=== PATIENT | female | born 2005 | race Caucasian/White ===

== ENCOUNTER 2025-01-15 17:48 | Emergency (ER) | payer BC, OTHER ==
[2025-01-15] MEDS ORDERED: NA CHLORIDE 0.9% 2,000 ML ONE (18:26)
[2025-01-15 18:34] LABS: Absolute Lymphocytes (CBC) 1.9 K/uL (0.7-4.9); Hematocrit 36.6 % (36.0-45.0); Hemoglobin 12.7 g/dL (12.0-15.0); MCH 28.5 pg (27.0-35.0); MCHC 34.7 g/dL (32.0-36.0); MCV 82.2 fL (80-100); MPV 7.4 fL (7.6-11.3); Nucleated RBC Absolute Count 0.0 (0-0); Nucleated Red Blood Cells % 0.0 % (0-0); RBC Red Blood Cell Count 4.45 M/uL (3.86-4.86); White Blood Count 10.10 thou/uL (4.3-10.9)
--- NOTE | 2025-01-15 18:43 | RAD REPORT ---
EXAMINATION: ONE VIEW CHEST XR CLINICAL INDICATION: COUGH TECHNIQUE: Frontal chest projection is submitted. Examination is limited by patient positioning and t echnique. COMPARISON: No prior exam. FINDINGS: The lungs are well inflated and clear. The heart is normal in size. No displaced fractures identified . IMPRESSION: No acute intrathoracic abnormalities.
[2025-01-15 18:54] LABS: ALT/SGPT 19.0 U/L (13-56); AST/SGOT 15.0 U/L (15-37); Albumin 3.6 g/dL (3.4-5.0); Albumin/Globulin Ratio 0.9 (1.1-1.8); Alkaline Phosphatase 103.0 U/L (45-117); Anion Gap 9.5 mEq/L (5.0-15.0); BUN Blood Urea Nitrogen 12.0 mg/dL (7-18); Globulin 4.2 g/dL (2.3-3.5); Glucose Level 109.0 mg/dL (74-106); Potassium 3.5 mEq/L (3.5-5.1)
[2025-01-15 18:57] LABS: Influenza A Ag Negative; Influenza B Ag Negative; SARS-CoV-2 Antigen Rapid Res Negative (Negative)
[2025-01-15 19:02] LABS: Thyroid Stimulating Hormone 1.480 uIU/mL (0.358-3.740); Troponin High Sensitivity < 3.0 pg/mL (<58.9)
[2025-01-15 19:17] LABS: Sqamous Epithelial <5 /HPF (None Seen); Urine Crystals Unidentified Few /HPF (None Seen); Urine Culture Reflex Order NOT NEEDED; Urine Microscopic Reflex YN ORDER UMIC; Urine Yeast (Budding) Trace /HPF (None Seen)
--- NOTE | 2025-01-15 20:05 | EDPHYS ---
Physician Documentation [facility] Name: Miguelina Velez Age: 19 yrs Sex: Female : 2005 Arrival Date: 01/15/2025 Time: 17:48 Bed 8 Private MD: ED Physician Isiah Paniagua HPI: 01/15 21:04 This 19 yrs old Female presents to ER via Ambulatory with complaints of Flu dr5 Symptoms, high heart rate. 21:04 Onset: The symptoms/episode began/occurred 4 day(s) ago. Patient is a 19-year-old dr5 female with history of myasthenia gravis coming in with flulike symptoms, left eye pain, and elevated heart rate. Patient reports that she went to urgent care and was referred here due to elevated heart rate. Patient denies chest pain, shortness of breath, abdominal pain, nausea, vomiting, dysuria. Patient does report intermittent diarrhea.. 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 - Infectious Disease History:: Denies. - Social history:: Smoking status: Patient denies any tobacco usage or history of. ROS: 21:04 Constitutional: as per hpi dr5 Exam: 21:04 Constitutional: This is a well developed, well nourished patient who is awake, alert, dr5 and in no acute distress. Head/Face: Normocephalic, atraumatic. Eyes: Pupils equal round and reactive to light, extra-ocular motions intact. Lids and lashes normal. Conjunctiva and sclera are non-icteric and not injected. Cornea within normal limits. Periorbital areas with no swelling, redness, or edema. Neck: Trachea midline, no thyromegaly or masses palpated, and no cervical lymphadenopathy. Supple, full range of motion without nuchal rigidity, or vertebral point tenderness. No Meningismus. Chest/axilla: Normal chest wall appearance and motion. Nontender with no deformity. No lesions are appreciated. Cardiovascular: Tachycardic rate and rhythm with a normal S1 and S2. Normal PMI, no JVD. No pulse deficits. Respiratory: Lungs have equal breath sounds bilaterally, clear to auscultation. No rales, rhonchi or wheezes noted. No increased work of breathing, no retractions or nasal flaring. Abdomen/GI: Soft, non-tender, non-distended Back: No spinal tenderness. No costovertebral tenderness. Full range of motion. Skin: Warm, dry with normal turgor. Normal color with no rashes, no lesions, and no evidence of cellulitis. MS/ Extremity: Pulses equal, no cyanosis. Neurovascular intact. Full, normal range of motion. Neuro: Awake and alert, GCS 15, oriented to person, place, time, and situation. Cranial nerves II-XII grossly intact. Motor strength 5/5 in all extremities. Sensory grossly intact. Cerebellar exam normal. Normal gait. Vital Signs: 18:01 BP 146 / 90; Pulse 150; Resp 18; Temp 98; Pulse Ox 99% ; Weight 66.68 kg; Height 5 ft. kb4 6 in. ; 19:00 BP 134 / 88; Pulse 121; Resp 22; Pulse Ox 99% on R/A; ar8 19:23 BP 128 / 84; Pulse 119; Resp 12; Pulse Ox 100% on R/A; mf3 20:00 BP 140 / 95; Pulse 110; Resp 14; Pulse Ox 100% ; mf3 18:01 Body Mass Index 23.73 (66.68 kg, 167.64 cm) kb4 MDM: 17:54 Medical Screening Exam initiated dr5 21:04 Differential diagnosis: viral Infection, bacterial infection, URI, bronchitis, dr5 pneumonia UTI, gastroenteritis. Data reviewed: vital signs, nurses notes, lab test result(s), CBC, white blood cell count, hemoglobin, hematocrit, platelets, electrolytes, sodium, potassium, chloride, serum bicarbonate, BUN, creatinine, serum glucose, Flu: negative urinalysis, COVID-negative, EKG, radiologic studies, plain films. Consideration of Admission/Observation Escalation of care including admission/observation considered. Escalation considered patient found to have abnormality on blood work and not feeling better.. I considered the following discharge prescriptions or medication management in the emergency department I discussed and recommended Over The Counter medications, Medications were administered in the Emergency Department. See MAR. Independent interpretation of the following test(s) in the Emergency Department X-Ray: My interpretation is Independent interpretation of x-ray does not reveal pneumonia. Historians other than the Patient: Parent: Mother. Care significantly affected by the following chronic conditions: Myasthenia gravis. Care significantly affected by the following Social Determinants of Health: Poor access to healthcare and/or lack of insurance, Poor access to transportation, Problems related to employment. Counseling: I had a detailed discussion with the patient and/or guardian regarding the historical points, exam findings, and any diagnostic results supporting the discharge/admit diagnosis, the presence of at least one elevated blood pressure reading (>120/80) during this emergency department visit, lab results, radiology results, the need for outpatient follow up, for definitive care, a family practitioner, to return to the emergency department if symptoms worsen or persist or if there are any questions or concerns that arise at home. Medication response: 2 L of fluid. Response to treatment: the patient's symptoms have markedly improved after treatment, the patient is now symptom free. Special discussion: I discussed with the patient/guardian in detail that at this point there is no indication for admission to the hospital. It is understood, however, that if the symptoms persist or worsen the patient needs to return immediately for re-evaluation. Based on the history and exam findings, there is no indication for further emergent testing or inpatient evaluation. I discussed with the patient/guardian the need to see the primary care provider for further evaluation of the symptoms. ED course: 2 L of fluid given in ER. Patient heart rate decreased from 150-110. Patient states that she feeling much better. Will give ofloxacin for left-sided conjunctivitis. Will cover for sinusitis with Augmentin. Recommended increase hydration. Alternate Tylenol and Motrin as needed for pain and fever. Recommended close follow-up and return to ER for any changes.. 01/15 17:58 Order name: COVID-19 Ag + Flu A+B Ag; Complete Time: 18:58 dr5 01/15 17:58 Order name: Group A Streptococcus Rapid; Complete Time: 18:45 dr5 01/15 18:13 Order name: CBC with Diff; Complete Time: 18:38 dr5 01/15 18: Order name: CMP; Complete Time: 18:58 dr5 01/15 18:13 Order name: UA Rfx Jasson Cult if indicated; Complete Time: 19:23 dr5 01/15 18:23 Order name: Troponin High Sensitivity; Complete Time: 19:03 dr5 01/15 18:23 Order name: TSH; Complete Time: 19:03 dr5 01/15 18:45 Order name: [place] Screen Profile; Complete Time: 20:02 dr5 01/15 18:47 Order name: Throat Culture [facility] 01/15 18:13 Order name: Chest Single View XRAY; Complete Time: 18:45 dr5 EC:09 Rate is 149 beats/min. Rhythm is regular. QRS [place] is Normal. CA interval is normal at dr5 130 msec. QRS interval is normal at 84 msec. QT interval is normal at 262 msec. Clinical impression: Sinus tachycardia. Administered Medications: 18:28 Drug: NS 0.9% IV 2000 ml IV at 1000 ml once; to be given as a bolus over 60 minutes jp5 Route: IV; Rate: 1000 ml; Site: right antecubital; 20:37 Follow up: Response: No adverse reaction; IV Status: Completed infusion mf3 Disposition Summary: 01/15/25 20:05 Discharge Ordered Notes: Location: Home dr5 Condition: Stable dr5 Diagnosis - Dehydration dr5 - Acute frontal sinusitis dr5 - Unspecified acute conjunctivitis, left eye dr5 Followup: dr5 - With: Emergency Department - When: As needed - Reason: Worsening of condition Followup: dr5 - With: Private Physician - When: 1 - 2 days - Reason: Recheck today's complaints, Continuance of care, Re-evaluation by your physician Discharge Instructions: - Discharge Summary Sheet dr5 - Dehydration, Adult dr5 - Bacterial Conjunctivitis, Adult dr5 - Sinusitis, Adult dr5 Forms: - Work release form jb4 - Medication Reconciliation Form dr5 - Antibiotic Education dr5 - Patient Portal Instructions dr5 - Leadership Thank You Letter dr5 Prescriptions: - Augmentin 875-125 mg Oral Tablet - take 1 tablet ORAL route every 12 hours for 10 days; 20 tablet; Refills: 0, dr5 Product Selection Permitted - Ocuflox 0.3 % Ophthalmic Drops - instill 2 drops OPHTHALMIC route every 6 hours for 2 days; 15 milliliter; dr5 Refills: 0, Product Selection Permitted Addendum: 01/17/2025 07:40 Co-signature as Attending Physician, Isiah Paniagua MD I agree with the assessment and c levin plan of care. Signatures: Dispatcher [employer] [facility] Isiah Paniagua MD MD cha Pena, Jailene RN RN jp5 Agusto Dubose, ORIANA-C BIRD KEEPER-Cdr5 Stephenie Merchant RN RN kb4 Faggart, Kaylee RN mf3 Corrections: (The following items were deleted from the chart) 01/15 17 17:58 COVID-19 Ag + Flu A+B Ag+I.LAB.BRZ ordered. EDMS EDMS 17:58 Group A Streptococcus Rapid Sc+I.LAB.BRZ ordered. EDMS EDMS
--- NOTE | 2025-01-15 20:05 | ER ---
Nurse's Notes [facility] Name: Miguelina Velez Age: 19 yrs Sex: Female : 2005 Arrival Date: 01/15/2025 Time: 17:48 Bed 8 Private MD: Diagnosis: Dehydration;Acute frontal sinusitis;Unspecified acute conjunctivitis, left eye Presentation: 01/15 18:01 Chief complaint: Patient states: feeling sick since Sunday, tested neg for kb4 Flu/covid/strep, c/o L eye red and producing drainage, went to urgent care and was advised to come to ER for HR >150. Coronavirus screen: At this time, unable to obtain information related to travel outside the [place] Coronavirus screen: At this time, unable to obtain information related to travel outside the [place] Ebola Screen: No symptoms or risks identified at this time. Initial Sepsis Screen: Does the patient meet any 2 criteria? No. Patient's initial sepsis screen is negative. Does the patient have a suspected source of infection? No. Patient's initial sepsis screen is negative. Risk Assessment: Do you want to hurt yourself or someone else? Patient reports no desire to harm self or others. Onset of symptoms was January 09, 2025. 18:01 Method Of Arrival: Ambulatory [facility] 18:01 Acuity: INGA 3 kb4 18:05 Note immunocompromized. 4 Triage Assessment: 18:04 General: Appears in no apparent distress. uncomfortable, ill, Behavior is calm, kb4 cooperative. Pain: Denies pain. CAN CAPPER: 18:04 Not kb4 Historical: - Allergies: 18:04 No Known Allergies; kb4 - PMHx: 18:04 Myasthenia gravis; kb4 - Immunization history:: Adult Immunizations up to date. - Infectious Disease History:: Denies. - Social history:: Smoking status: Patient denies any tobacco usage or history of. Screenin:25 [facility] ED Fall Risk Assessment (Adult) History of falling in the last 3 months, jp5 including since admission No falls in past 3 months (0 pts) Confusion or Disorientation No (0 pts) Intoxicated or Sedated No (0 pts) Impaired Gait No (0 pts) Mobility Assist Device Used No (0 pt) Altered Elimination No (0 pt) Score/Fall Risk Level 0 - 2 = Low Risk Oriented to surroundings, Maintained a safe environment, Educated pt \T\ family on fall prevention, incl call for assistance when getting out of bed, Assessed \T\ reinforced patient's understanding of fall precautions, Provided non-skid footwear, Hourly rounding (assess needs \T\ fall precautionary measures) done, Used ambulatory aids as needed (educated on \T\ assisted with), Used gait belt as appropriate. Abuse screen: Denies threats or abuse. Denies injuries from another. Nutritional screening: No deficits noted. Tuberculosis screening: No symptoms or risk factors identified. Assessment: 18:25 General: Appears in no apparent distress. Neuro: No deficits noted. Cardiovascular: jp5 Rhythm is sinus tachycardia. 19:22 Reassessment: Patient and/or family updated on plan of care and expected duration. Pain mf3 level reassessed. Patient is alert, oriented x 3, equal unlabored respirations, skin warm/dry/pink. Patient denies pain at this time. General: Appears in no apparent distress. comfortable, Behavior is calm, cooperative, appropriate for age. Neuro: Level of Consciousness is awake, alert, obeys commands, Oriented to person, place, time, situation. Respiratory: Airway is patent Trachea midline Respiratory effort is even, unlabored. Vital Signs: 18:01 BP 146 / 90; Pulse 150; Resp 18; Temp 98; Pulse Ox 99% ; Weight 66.68 kg; Height 5 ft. kb4 6 in. ; 19:00 BP 134 / 88; Pulse 121; Resp 22; Pulse Ox 99% on R/A; ar8 19:23 BP 128 / 84; Pulse 119; Resp 12; Pulse Ox 100% on R/A; mf3 20:00 BP 140 / 95; Pulse 110; Resp 14; Pulse Ox 100% ; mf3 18:01 Body Mass Index 23.73 (66.68 kg, 167.64 cm) kb4 ED Course: 17:53 Patient arrived in ED. im 17:54 Agusto Dubose FNP-C is PHCP. dr5 17:54 Isiah Paniagua MD is Attending Physician. dr5 18:04 Triage completed. kb4 18:06 Stephenie Merchant, NELIDA is Primary Nurse. kb4 18:25 No provider procedures requiring assistance completed. jp5 18:25 Patient has correct armband on for positive identification. Bed in low position. Call jp5 light in reach. Side rails up X 1. Provided Education on: call light. 18:28 CMP Sent. jp5 18:28 CBC with Diff Sent. jp5 18:28 COVID-19 Ag + Flu A+B Ag Sent. jp5 18:28 Group A Streptococcus Rapid Sent. jp5 18:29 TSH Sent. jp5 18:29 Troponin High Sensitivity Sent. jp5 18:41 Chest Single View XRAY In Process Unspecified. EDMS 19:06 [place] Screen Profile Sent. ar8 19:06 UA Rfx Jasson Cult if indicated Sent. ar8 20:36 IV discontinued, intact, bleeding controlled, No redness/swelling at site. Pressure mf3 dressing applied. 20:36 Patient NONE. mf3 Administered Medications: 18:28 Drug: NS 0.9% IV 2000 ml IV at 1000 ml once; to be given as a bolus over 60 minutes jp5 Route: IV; Rate: 1000 ml; Site: right antecubital; 20:37 Follow up: Response: No adverse reaction; IV Status: Completed infusion mf3 Medication: 18:25 VIS not applicable for this client. jp5 Outcome: 20:05 Discharge ordered by MD. dr5 20:36 Discharged to home ambulatory, with family, mf3 20:36 Condition: stable 20:36 Discharge instructions given to patient, Instructed on discharge instructions, follow up and referral plans. Demonstrated understanding of instructions, follow-up care, medications, Prescriptions given X 2, 20:37 Patient left the ED. mf3 Signatures: Dispatcher [employer] [facility] Kenisha Prakash RN RN vc1 Jolie Cain Jailene RN RN jp5 Agusto Dubose, HEAD BATCHER-C HEAD BATCHER-Cdr5 Stephenie Merchant RN RN kb4 Regino Valentin RN RN ar8 Kaylee Tovar RN RN mf3 Corrections: (The following items were deleted from the chart) 20:36 20:00 BP 140 / 95; Pulse 125bpm; Resp 14bpm; Pulse Ox 100%; vc1 mf3
[2025-01-15 22:23] VITALS: TEMP 98
[2025-01-15 22:25] VITALS: O2SAT 100
[2025-01-15 22:26] VITALS: BP 140/95
== END 2025-01-15 20:37 | disposition home or self-care (01) ==
LOC: ER 17:48
DX: E86.0 Dehydration (principal); J01.10 Acute frontal sinusitis, unspecified; H10.32 Unspecified acute conjunctivitis, left eye; Z11.52 Encounter for screening for COVID-19
CPT/HCPCS: 96361; 93005; 87070; 85025; 81001; 36415; 86308; 84443; 84484; 80053; 71045; 96360; 99284; 87428; J7030